=== PATIENT | female | born 1965 | race Caucasian/White ===

== ENCOUNTER 2017-11-02 20:25 | Emergency (ER) | payer OTHER, SELFPAY ==
[2017-11-02 20:26] VITALS: BP 148/93; PULSE 120; RESP 16; TEMP 36.7; O2SAT 97; BMI 50.3
[2017-11-02 20:33] VITALS: BP 145/87; PULSE 107; RESP 14; O2SAT 97
--- NOTE | 2017-11-02 21:31 | ED.DCSUM_ITS ---
- ER Visit Summary Date of Service: 11/02/17 Chief Complaint: Right knee pain secondary to twisting injury yesterday at work History of Present Illness: The patient is a 51 F presents with medial right knee pain after twisting mechanism injury. There is no direct trauma. She reports she has history of osteoarthritis and believe that is the problem. She reports pain with movement and weight. She denies being on any anticoagulant. She denies history of gout or pseudogout. 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 She has no other complaints please read written note. Physical Examination: Vital signs remarkable for blood pressure 145/87. Heart rate is 107. There may be slight swelling of the right knee compared to left. There is pain the patient over the medial collateral ligament. Is no pain the patient and lateral collateral ligament. There is no pain the patient of the patella and the patella is not ballotable. There is no palpable effusion. There is no joint line tenderness noted. Varus and valgus stress testing causes discomfort over the MCL. There is no laxity compared to the on injured knee. Amrita's test and modified Yonas's tests are negative. She is able to extend 180? and flex to 90?. There is fullness in the popliteal fossa suggestive of a Santamaria's cyst. There is no tenderness. There is no asymmetry, swelling, discoloration, leg vein distention, palpable cords or tenderness along the distribution of the deep venous system. Test Results: No tests were obtained, nor any indications there is no history of direct trauma and she has no joint line/tibial plateau tenderness. Emergency Department Course and Treatment: Patient had an appropriate exam and based on exam is my opinion the patient sprained her MCL ligament. Radiologic imaging is not indicated per the [place] knee rule. Treatment Plan: Outpatient follow-up with Dr. RACHEL Martinez who she was referred to since she does not have a local physician in the area. Disposition: Discharged home with appropriate home-going instructions Impression: First-degree MCL strain right knee initial encounter This note was generated with [employer] dictation software. It may contain incorrect words, spelling, and punctuation that were not noted in review of the chart prior to signing ED Disposition - Plan for ED Patient: Disposition: Home or Assisted Living Chief Complaint: Lower Extremity Injury Instructions: ED Sprain Knee Referrals: Care Physician,No Primary [Primary Care Provider] - Bart Martinez MD [STAFF PHYSICIAN] - 5-7 Days Additional Instructions: You may take either Tylenol every 6 hours or 3 ibuprofen tablets every 8 hours for pain.
== END 2017-11-02 22:16 | disposition home or self-care (01) ==
PROVIDERS: Emergency Provider Emergency Medicine
DX: S83.501A Sprain of unspecified cruciate ligament of right knee, initial encounter (principal); X50.1XXA Overexertion from prolonged static or awkward postures, initial encounter; Y93.9 Activity, unspecified; Y92.89 Other specified places as the place of occurrence of the external cause; Y99.0 Civilian activity done for income or pay; E11.9 Type 2 diabetes mellitus without complications; I10 Essential (primary) hypertension; E78.00 Pure hypercholesterolemia, unspecified; M19.90 Unspecified osteoarthritis, unspecified site
CPT/HCPCS: 99282

== ENCOUNTER → 2017-11-11 10:29 | Outpatient (CLI) | payer OTHER, SELFPAY ==
[2017-11-11 10:35] LABS: Mucous, Urine 0 SEEN /hpf (<or=2+)
--- NOTE | 2017-11-11 10:35 | RAD_ITS ---
STUDY: X-RAY - RIGHT KNEE REASON FOR EXAM: Female, 51 years old. Right knee pain. TECHNIQUE: 4 view(s) of the knee. COMPARISON: August 03, 2017 FINDINGS: There is a sclerotic area in the distal femur most likely representing an enchondroma, unchanged. Normal visualized proximal tibia and fibula. Normal proximal tibiofibular articulation. There is moderate arthrosis of the medial compartment, mild arthrosis of the lateral compartment and moderate arthrosis of the patellofemoral compartment, unchanged from the prior study. The soft tissue structures are unremarkable. RAD/Knee 4 or More Views IMPRESSION: Stable osteopenia and tricompartmental arthrosis. No new or acute pathology. Electronically Signed: Wenceslao James MD at 17:17 EST , Service support ,
[2017-11-11 11:51] LABS: Color, Urine Yellow (Yellow); Glucose, Dipstick Normal (Normal); Ketone-Dipstick Negative (Negative); Leukocyte Esterase-Dipstick 500 /ul (Negative); Nitrite-Dipstick Positive (Negative); Occult Blood-Urine 250 /ul (Negative); Protein-Dipstick 100 mg/dl (Negative); Specific Gravity, Urine 1.025 (1.002-1.030); Urine Clarity Turbid (Clear); Urine Urobilinogen Normal (Normal)
[2017-11-11 11:55] LABS: Urine Bilirubin Dipstick 1 mg/dL (Negative)
[2017-11-11 11:55] LABS: Absolute Neutrophil Count 4.4 X10^3/uL (2.0-7.7); Basophil# 0.04 X10^3/uL; Basophil% 0.6 % (0-1); Eosinophil# 0.14 X10^3/uL; Eosinophils% 2.1 % (0-5); Hematocrit 41.4 % (37-47); Hemoglobin 13.4 g/dl (12.0-15.0); Lymphocyte % 25.6 % (19-41); Mean Corp Hgb Conc 32.4 g/gl (32-36); Mean Corpuscular Hgb 28.4 pg (27.0-32.0); Mean Corpuscular Volume 87.7 fL (81-99); Mean Platelet Vol. 10.6 fl (6.2-12.0); Neutrophil # 4.35 X10^3/uL (2.7-7.7); Neutrophil % 65.5 % (47-70); Platelet Count 271 K/mm3 (150-450); RBC Distribution Width CV 13.2 % (11.6-14.6); RBC Distribution Width SD 42.2 fl (35.1-43.9); Red Blood Count 4.72 M/mm3 (4.2-5.4); White Blood Count 6.6 K/mm3 (4.4-11.0)
[2017-11-11 11:57] LABS: POSITIVE COUNT NO; POSITIVE DIFFERENTIAL NO; POSITIVE MORPHOLOGY NO
[2017-11-11 11:57] LABS: Bacteria 4+ /hpf (None Seen); Red Blood Cells-Urine 0-5 SEEN /hpf (0-5); White Blood Cells 25-50 SEEN /hpf (0-5); Yeast-Urine RARE /hpf (None Seen)
[2017-11-11 11:58] LABS: Squamous Epithelial Cells - UA 0-5 SEEN /hpf (5-10)
[2017-11-11 12:10] LABS: Hemoglobin A1c 7.1 % (4.2-6.3)
[2017-11-11 12:29] LABS: ALB/GLOB Ratio 0.8 RATIO (0.9-2.4); AST(SGOT) 18 U/L (15-37); Alanine Aminotransfer ALT/SGPT 43 U/L (13-56); Albumin, Serum 3.7 g/dL (3.2-5.0); Alkaline Phosphatase 95 U/L (45-117); Anion Gap 9 (5-15); BUN 13 mg/dL (7-18); Calcium,Total 8.9 mg/dL (8.5-10.1); Chloride 106 mmol/L (98-107); Cholesterol 202 mg/dL (200); Creatinine, Serum 0.86 mg/dL (0.55-1.02); EST Glomerular Filtration Rate 74 mL/min (>60); Est Glom Filt Rate - Afr Amer 89 mL/min (>60); Globulin 4.5 g/dL (2.2-4.2); Glucose 155 mg/dL (74-106); High Density Lipoprotein 38 mg/dL; Potassium 3.7 mmol/L (3.5-5.1); Protein, Total 8.2 g/dL (6.4-8.2); Sodium Level 140 mmol/L (136-145); Thyroid Stim Hormone (TSH) 1.06 uIU/mL (0.358-3.74); Triglycerides 239 mg/dL; Very Low Density Lipoprotein 48 mg/dL (5-40)
[2017-11-11 12:47] LABS: Microalbumin:Creatinine Ratio 218.9 mg/g CRE (<30 mg/g CRE)
== END ==
PROVIDERS: Family Provider Family Medicine; PCP Family Medicine; Visit Provider Family Medicine
DX: M17.10 Unilateral primary osteoarthritis, unspecified knee (principal); E11.9 Type 2 diabetes mellitus without complications; I10 Essential (primary) hypertension; E66.01 Morbid (severe) obesity due to excess calories
CPT/HCPCS: 73564; 80053; 80061; 81001; 82043; 82570; 83036; 84443; 85025; 87086; 87088; 87186

== ENCOUNTER 2017-12-09 09:00 | Outpatient (RCR) | payer OTHER, SELFPAY ==
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
--- NOTE | 2018-02-08 18:33 | HP.PTDCNRP_ITS ---
HP - Discharge Summary (1) - Patient Information CHALO PARHAM was seen in my office for initial evaluation on 11/18/17. The following Plan of Care was established for this patient: Initial Frequency: 2x /Week Initial Duration: 4-6 Weeks - Anticipated Interventions Patient/Client Instruction: Educate patient on: Condition, Plan of Care, Risk Factors, Benefits of Fitness Program For the Purpose of:: To improve decision making, To facilitate caregiver knowledge, To improve self management, To prevent re-injury, To improve ability to perform tasks related to life management, To improve tolerance to ADL's Therapeutic Exercise to Include: Strength training, Power training, Endurance training, Balance training, Body mechanics, Postural training, Flexibilty training, Gait and locomotor training, In an aquatic setting, Passive ROM, Active ROM For the Purpose of:: To decrease pain, To increase ROM, To improve nutrient delivery to tissue, To increase oxygenation perfusion, To improve muscle performance and motor function, To increase tolerance to activity/condition/ position, To improve performance and independence with ADL's, To improve ability of physical actions for home/community/work/leisure, To improve gait and locomotor functions, To improve health of tissue, To decrease soft tissue restriction, To increase flexibility/ROM, To improve balance IF ES: Yes Cryotherapy (ice pack, ice massage): Yes Thermo therapy (hot pack): Yes Ultrasound (thermal/non thermal): Yes For the Purpose of:: To decrease pain, To decrease swelling/inflammation, To increase ROM This patient was last seen in our office 12/09/17. Pertinent comments regarding their Physical therapy will appear below: Pt. was seen for 4 visits for her MCL sprain. Pt. was seen ni aquatic setting for 4 visits total, but did not return to any other visits. She was to attempt trialing to land PT at that point in time. She will be DC from PT at this point in time. At this point I will be discontinuing this patient from physical therapy. I would be happy to see this patient again in the future if found appropriate by the physician. Thank you! Gera Tai
== END 2017-12-09 19:00 | disposition home or self-care (01) ==
LOC: PT 09:00
PROVIDERS: Family Provider Family Medicine; PCP Family Medicine; Visit Provider Family Medicine
DX: S83.411D Sprain of medial collateral ligament of right knee, subsequent encounter (principal)
CPT/HCPCS: 97110; 97113; 97162

== ENCOUNTER 2017-12-25 09:43 | Outpatient (RCR) | payer OTHER, SELFPAY | END 2017-12-25 23:55 | LOC: DC 09:43 | PROVIDERS: Family Provider Family Medicine; PCP Family Medicine; Visit Provider Family Medicine | DX: E66.01 Morbid (severe) obesity due to excess calories (principal); Z71.3 Dietary counseling and surveillance | CPT/HCPCS: G0108 ==

== ENCOUNTER 2018-03-02 14:12 | Emergency (ER) | payer OTHER, SELFPAY ==
[2018-03-02 14:13] VITALS: BP 148/95; PULSE 119; RESP 18; TEMP 37.2; O2SAT 97; BMI 49.6
--- NOTE | 2018-03-02 14:57 | RAD_ITS ---
STUDY: X-RAY CHEST REASON FOR EXAM: Female, 52 years old. 3 day history of cough. TECHNIQUE: Single AP portable view of the chest. COMPARISON: Comparison is made with prior study dated September 11, 2017. FINDINGS: The lungs are clear and expanded. There is no demonstrated pleural abnormality. Normal size heart. Normal mediastinum and edwar. Normal visualized pulmonary arteries. Normal visualized aortic arch and descending thoracic aorta. Normal visualized thoracic spine. Normal visualized ribs, clavicles, and shoulders. There is no demonstrated abnormality of the visualized soft tissue structures of the upper abdomen. RAD/Chest 1 View (Portable) IMPRESSION: Normal x-ray examination of the chest. Electronically Signed: Lamine Black MD at 15:18 EDT Tel [phone], Service support ,
[2018-03-02 14:59] VITALS: PULSE 105; O2SAT 98
[2018-03-02] MEDS: Ondansetron 4 MG/2 ML Vial IV (15:04)
[2018-03-02] MEDS: 0.9% Normal Saline 1,000 ML 1000 ML IV (15:04)
[2018-03-02 15:13] LABS: Absolute Lymphocyte Count 1.39 X10^3/ul (0.83-4.51); Absolute Neutrophil Count 3.7 X10^3/uL (2.0-7.7); Basophil# 0.03 X10^3/uL; Basophil% 0.5 % (0-1); Eosinophil# 0.35 X10^3/uL; Eosinophils% 5.6 % (0-5); Hematocrit 37.7 % (37-47); Hemoglobin 12.5 g/dl (12.0-15.0); Lymphocyte # 1.39 X10^3/ul (4.0); Lymphocyte % 22.3 % (19-41); Mean Corp Hgb Conc 33.2 g/gl (32-36); Mean Corpuscular Hgb 29.2 pg (27.0-32.0); Mean Corpuscular Volume 88.1 fL (81-99); Mean Platelet Vol. 10.4 fl (6.2-12.0); Monocyte# 0.76 X10^3/uL; Monocyte% 12.2 % (0-10); Neutrophil % 59.2 % (47-70); Platelet Count 254 K/mm3 (150-450); RBC Distribution Width CV 13.1 % (11.6-14.6); RBC Distribution Width SD 41.6 fl (35.1-43.9); Red Blood Count 4.28 M/mm3 (4.2-5.4); White Blood Count 6.2 K/mm3 (4.4-11.0)
[2018-03-02 15:14] LABS: POSITIVE COUNT NO; POSITIVE DIFFERENTIAL NO; POSITIVE MORPHOLOGY NO
[2018-03-02] MEDS: Ipratropium/Albuterol Sulfate 3 ML AMPUL.NEB INHALATION (15:15)
[2018-03-02 15:16] VITALS: PULSE 107; RESP 18
--- NOTE | 2018-03-02 15:16 | ED.DCSUM_ITS ---
- ER Visit Summary Date of Service: 03/02/18 Chief Complaint: Nausea, vomiting, cough, and fever History of Present Illness: The patient is a 52 F with multiple symptoms. She started to have a cough 2 days ago. It is productive of sputum. No blood. She had some nausea and vomiting with this. The nausea has continued, but the vomiting resolved yesterday. Last night she had a fever of 101. She tried some Robitussin, but nothing seems to help. Patient has a history of diabetes, hypertension, high cholesterol, and obstructive sleep apnea. She is a former smoker. No history of heart disease or DVT/PE. Physical Examination: Tachycardic at 119. Afebrile. Vital signs unremarkable otherwise. Patient appears uncomfortable but not toxic or in distress. HEENT exam unremarkable. Heart regular. Lungs are diminished throughout. Patient has trace peripheral edema. Calves are nontender. Skin appears normal in color. Test Results: X-ray and labs pending. Emergency Department Course and Treatment: Patient was tachycardic. She was treated with IV fluids. She also received Zofran and a DuoNeb. Will check labs and a chest x-ray. Will reassess. Labs and x-ray unremarkable. Patient slightly improved. This is likely a viral syndrome. Will treat with albuterol, Tessalon, and Zofran. Stay hydrated and rested. Follow-up with primary care. Return for any new or worsening issues. Treatment Plan: As above Disposition: Discharged Impression: Acute bronchitis This note was generated with [employer] dictation software. It may contain incorrect words, spelling, and punctuation that were not noted in review of the chart prior to signing ED Disposition - Plan for ED Patient: Chief Complaint: General Illness Referrals: Bart Muniz MD [Primary Care Provider] -
[2018-03-02 15:32] LABS: Anion Gap 6 (5-15); BUN 14 mg/dL (7-18); BUN/Creat Ratio 14.1 RATIO (10-20); Chloride 105 mmol/L (98-107); EST Glomerular Filtration Rate 62 mL/min (>60); Est Glom Filt Rate - Afr Amer 76 mL/min (>60); Estimated Creatinine Clearance 52.64 ml/min; Glucose 177 mg/dL (74-106); Potassium 3.7 mmol/L (3.5-5.1); Sodium Level 139 mmol/L (136-145)
--- NOTE | 2018-03-02 16:02 | ED.DEP ---
ED Disposition - Plan for ED Patient: Chief Complaint: General Illness Instructions: Acute Bronchitis Prescriptions: Albuterol Inhaler [Ventolin Hfa] 1 - 2 puff INHALATION Q4H PRN PRN #1 inhaler PRN Reason: Wheezing Ondansetron [Zofran Odt] 4 mg PO Q8H PRN PRN #10 tab PRN Reason: Nausea Benzonatate [Tessalon Perle] 100 mg PO TID PRN PRN #20 cap PRN Reason: Cough Referrals: Bart Muniz MD [Primary Care Provider] -
[2018-03-02 16:27] VITALS: BP 132/92; PULSE 106; RESP 15; O2SAT 98
== END 2018-03-02 16:27 | disposition home or self-care (01) ==
PROVIDERS: Emergency Provider Emergency Medicine; Family Provider Family Medicine; PCP Family Medicine
DX: J20.9 Acute bronchitis, unspecified (principal); E11.9 Type 2 diabetes mellitus without complications; I10 Essential (primary) hypertension; E78.00 Pure hypercholesterolemia, unspecified; G47.33 Obstructive sleep apnea (adult) (pediatric); Z87.891 Personal history of nicotine dependence
CPT/HCPCS: 71045; 80048; 85025; 94640; 99283; J7030; J2405

== ENCOUNTER 2018-03-23 11:53 | Emergency (ER) | payer OTHER, SELFPAY ==
[2018-03-23 11:53] VITALS: BP 163/84; PULSE 85; RESP 16; TEMP 36.6; O2SAT 97; BMI 50.3
--- NOTE | 2018-03-23 13:55 | CT_ITS ---
STUDY: CT BRAIN WITHOUT CONTRAST REASON FOR EXAM: Female, 52 years old. 5 day history of headaches. RADIATION DOSAGE (If Supplied By Facility): CTDIvol = ( 60.81 ) mGy, DLP = ( 998.67 ) mGycm TECHNIQUE: Transaxial CT imaging of the brain was performed without administration of intravenous contrast material. Individualized dose optimization techniques were used for this CT. COMPARISON: None. FINDINGS: Normal soft tissue structures. Normal calvarium. Normal size ventricles and extra-axial spaces for the patient's age. Normal white matter tracts of the cerebral hemispheres. Normal basal ganglia and thalami. Normal brainstem. Normal cerebellum. Old lacunar infarct in the insular cortex of the left temporal lobe. There is no intracranial hemorrhage. There are no findings of an acute ischemic infarction. Normal visualized paranasal sinuses. CT/Brain/Head without Contrast IMPRESSION: Old lacunar infarct in the insular cortex of the left temporal lobe. Electronically Signed: Lamine Black MD at 14:46 EDT Tel [phone], Service support ,
[2018-03-23] MEDS: 0.9% Normal Saline 1,000 ML 1000 ML IV (14:15)
[2018-03-23] MEDS: Metoclopramide 10 MG/2 ML Vial IV (14:15)
[2018-03-23] MEDS: DiphenhydrAMINE 50 MG/ML Syringe 25 MG IV (14:15)
[2018-03-23] MEDS: Ketorolac 30 MG/ML Syringe IV (14:15)
[2018-03-23 14:28] LABS: Absolute Lymphocyte Count 2.14 X10^3/ul (0.83-4.51); Absolute Neutrophil Count 4.1 X10^3/uL (2.0-7.7); Basophil# 0.05 X10^3/uL; Basophil% 0.7 % (0-1); Eosinophil# 0.15 X10^3/uL; Eosinophils% 2.1 % (0-5); Hematocrit 37.3 % (37-47); Hemoglobin 11.9 g/dl (12.0-15.0); Lymphocyte # 2.14 X10^3/ul (4.0); Lymphocyte % 30.4 % (19-41); Mean Corp Hgb Conc 31.9 g/gl (32-36); Mean Corpuscular Hgb 28.1 pg (27.0-32.0); Mean Platelet Vol. 10.2 fl (6.2-12.0); Monocyte# 0.59 X10^3/uL; Monocyte% 8.4 % (0-10); Neutrophil # 4.11 X10^3/uL (2.7-7.7); Neutrophil % 58.3 % (47-70); POSITIVE COUNT NO; POSITIVE DIFFERENTIAL NO; POSITIVE MORPHOLOGY NO; Platelet Count 262 K/mm3 (150-450); RBC Distribution Width CV 13.3 % (11.6-14.6); RBC Distribution Width SD 42.7 fl (35.1-43.9); Red Blood Count 4.24 M/mm3 (4.2-5.4); White Blood Count 7.1 K/mm3 (4.4-11.0)
[2018-03-23 14:35] LABS: Carboxyhemoglobin Frac (CO) 1.5 % (0.0-1.5)
[2018-03-23 14:41] LABS: Anion Gap 7 (5-15); BUN 11 mg/dL (7-18); BUN/Creat Ratio 12.9 RATIO (10-20); Calcium,Total 8.8 mg/dL (8.5-10.1); Chloride 107 mmol/L (98-107); Creatinine, Serum 0.85 mg/dL (0.55-1.02); EST Glomerular Filtration Rate 75 mL/min (>60); Est Glom Filt Rate - Afr Amer 91 mL/min (>60); Estimated Creatinine Clearance 61.93 ml/min; Glucose 105 mg/dL (74-106); Potassium 4.1 mmol/L (3.5-5.1); Sodium Level 141 mmol/L (136-145)
--- NOTE | 2018-03-23 16:21 | ED.DCSUM_ITS ---
- ER Visit Summary Date of Service: 03/23/18 Chief Complaint: Headache History of Present Illness: The patient is a 52 F with generalized headache for the past 5 days. She states she does have light sensitivity and has had trouble staying awake. She denies head injury. She is currently staying at the [facility]. She states she is initially taking Excedrin but ran out of that medicine. She has been taking ibuprofen, last dose 6 hours prior to my initial evaluation. Physical Examination: Vital signs are significant for blood pressure 163/84, otherwise unremarkable. Patient sitting upright in bed no acute distress. She is alert and talkative. Head neck examination is unremarkable. Heart is regular rate and rhythm. Lung sounds are clear. Abdomen is soft and nontender. Neuro exam reveals good strength and sensation throughout. She is chronic changes to her left ankle from prior surgery. Test Results: CBC is significant only for hemoglobin 11.9. Chemistry studies normal. Carboxyhemoglobin level is normal at 1.5. CT head shows old lacunar infarct in the insular cortex of the left temporal lobe. Emergency Department Course and Treatment: Patient was given Toradol, Reglan, Benadryl, and IV fluids. On repeat evaluation she is resting comfortably and states her pain is resolved. Test results were discussed with her. She is encouraged to follow with her primary care physician in the next 1 week. Treatment Plan: [] Disposition: Discharge Impression: Cephalgia, improved This note was generated with [employer] dictation software. It may contain incorrect words, spelling, and punctuation that were not noted in review of the chart prior to signing ED Disposition - Plan for ED Patient: Disposition: Home or Assisted Living Chief Complaint: Headache Instructions: ED Cephalgia Unspecified Referrals: Bart Muniz MD [Primary Care Provider] - 1 Week if not improving
--- NOTE | 2018-03-23 16:38 | ED.RN ---
REVIEWED D/C INSTRUCTIONS, FOLLOW UP CARE, AND S/S THAT WOULD WARRANT A RETURN TO THE ED WITH PT. PT VERBALIZED AN UNDERSTANDING AND DENIES FURTHER QUESTIONS FOR THIS RN. PT SKIN P/W/D, RESP EVEN AND UNLABORED, PT A&O X 3, NO DISTRESS NOTED.
[2018-03-23 16:39] VITALS: BP 147/84; PULSE 78; RESP 16; O2SAT 100
== END 2018-03-23 16:43 | disposition home or self-care (01) ==
PROVIDERS: Emergency Provider Emergency Medicine; Family Provider Family Medicine; PCP Family Medicine
DX: R51 Headache (principal); E11.9 Type 2 diabetes mellitus without complications; I10 Essential (primary) hypertension; E78.00 Pure hypercholesterolemia, unspecified; G47.33 Obstructive sleep apnea (adult) (pediatric)
CPT/HCPCS: 70450; 80048; 82375; 85025; 99283; J7030; A4216

== ENCOUNTER 2018-06-27 23:51 | Observation (INO) | payer OTHER, SELFPAY ==
[2018-06-27 23:52] VITALS: BP 167/88; PULSE 96; RESP 15; TEMP 36.9; O2SAT 96; BMI 52.0
[2018-06-28] VITALS (16 sets, daily range): BP systolic 136–172; BP diastolic 67–93; PULSE 77–122; RESP 16–20; TEMP 36.6–37; O2SAT 94–98; BMI 49.4
--- NOTE | 2018-06-28 00:20 | EKG12_ITS ---
Test Reason : CHEST PAIN Blood Pressure : / mmHG Vent. Rate : 095 BPM Atrial Rate : 095 BPM P-R Int : 136 ms QRS Dur : 070 ms QT Int : 340 ms P-R-T Axes : 039 008 040 degrees QTc Int : 427 ms Normal sinus rhythm Minimal voltage criteria for LVH, may be normal variant Borderline ECG Confirmed by EVELIA HARO, LIDYA ([id number]), marketing editor XOCHITL MAYS ([id number]) on 06/30/2018 11:20:36 AM Referred By: MARTINEZ Confirmed By:LIDYA ALTAMIRANO MD
--- NOTE | 2018-06-28 00:25 | RAD_ITS ---
STUDY: X-RAY CHEST REASON FOR EXAM: Female, 52 years old. Chest pain. TECHNIQUE: Single AP portable view of the chest. # of Images: 1 COMPARISON: 03/02/2018. FINDINGS: The lungs are clear and mildly under expanded. There is no demonstrated pleural abnormality. Normal size heart. Normal mediastinum and edwar. Normal visualized pulmonary arteries. Normal visualized aortic arch and descending thoracic aorta. Normal visualized thoracic spine. Normal visualized ribs, clavicles, and shoulders. There is no demonstrated abnormality of the visualized soft tissue structures of the upper abdomen. RAD/Chest 1 View (Portable) IMPRESSION: No evidence for acute cardiopulmonary pathology. Electronically Signed: Kishan Bryant MD at 0:51 EDT , Service support ,
[2018-06-28 00:33] LABS: Absolute Lymphocyte Count 2.28 X10^3/ul (0.83-4.51); Absolute Neutrophil Count 5.2 X10^3/uL (2.0-7.7); Basophil# 0.04 X10^3/uL; Basophil% 0.5 % (0-1); Eosinophil# 0.15 X10^3/uL; Eosinophils% 1.8 % (0-5); Hematocrit 39.9 % (37-47); Hemoglobin 12.8 g/dl (12.0-15.0); Lymphocyte # 2.28 X10^3/ul (4.0); Lymphocyte % 27.5 % (19-41); Mean Corp Hgb Conc 32.1 g/gl (32-36); Mean Corpuscular Hgb 27.6 pg (27.0-32.0); Mean Platelet Vol. 10.4 fl (6.2-12.0); Monocyte# 0.64 X10^3/uL; Monocyte% 7.7 % (0-10); Neutrophil # 5.17 X10^3/uL (2.7-7.7); Neutrophil % 62.4 % (47-70); POSITIVE COUNT NO; POSITIVE DIFFERENTIAL NO; POSITIVE MORPHOLOGY NO; Platelet Count 295 K/mm3 (150-450); RBC Distribution Width CV 13.3 % (11.6-14.6); RBC Distribution Width SD 41.6 fl (35.1-43.9); Red Blood Count 4.64 M/mm3 (4.2-5.4); White Blood Count 8.3 K/mm3 (4.4-11.0)
[2018-06-28 00:54] LABS: Anion Gap 7 (5-15); BUN 14 mg/dL (7-18); BUN/Creat Ratio 13.9 RATIO (10-20); Chloride 105 mmol/L (98-107); Creatinine, Serum 1.01 mg/dL (0.55-1.02); EST Glomerular Filtration Rate 61 mL/min (>60); Est Glom Filt Rate - Afr Amer 74 mL/min (>60); Estimated Creatinine Clearance 52.12 ml/min; Glucose 175 mg/dL (74-106); Potassium 3.7 mmol/L (3.5-5.1); Sodium Level 139 mmol/L (136-145)
--- NOTE | 2018-06-28 00:54 | ED.DCSUM_ITS ---
History of Present Illness Chief Complaint: Chest Pain Informant: Patient Narrative: Patient presents with chest discomfort that started about an hour prior to arrival. It is all the way across her chest, nonpleuritic, heaviness, making her arms feel heavy and she is nauseated. She states her arms have felt heavy for maybe 3 days, worse tonight. Earlier today, she was having nonpleuritic back discomfort that was worse with exertion, upper back and nonlateralizing, and a little better when she rested but it did not resolve. She was nauseated today, vomited several times, all after the back pain started. Tonight she was resting and watching television while sitting up, when the chest discomfort started. She called 911 and was given 4 baby aspirin and a sublingual nitroglycerin, her chest discomfort is much improved now, down to 3/10. She has chronic swelling in her left lower extremity that is no worse, no history of venous thromboembolism. No history of coronary disease that she knows of, she had a stress test a year or 2 ago for chest pain that was okay, but states that it was different than this discomfort is. Her father at age 67 from cardiac complications. - Past Medical History (1) Hyperlipidemia Status: Chronic (2) Hypertension Status: Chronic (3) Diabetes mellitus Status: Chronic Past Medical History - Allergies and Home Meds Allergies/Adverse Reactions: Allergies carvedilol Allergy (Verified 03/23/18 11:55) Other Primary Care Physician: Bart Muniz MD [Primary Care Provider] - Surgical History: cholecystectomy, - - Repair of fracture of the left ankle with plate insertion, tubal ligation Smoking Status: Former smoker - Family History Maternal Family History: Reports: Diabetes, Hypertension Paternal Family History: Reports: Diabetes, Heart Disease, Hypertension Review of Systems General: Reports: Malaise. Denies: Chills, Fever, Sweats Eyes: Denies: Visual changes - bilaterally, Diplopia ENT: Denies: Bilateral ear pain, Sore throat Cardiovascular: Reports: Chest pain. Denies: Palpitations, Heart racing Respiratory: Denies: Dyspnea, Cough, Dyspnea on exertion Gastrointestinal: Reports: Nausea, Vomiting. Denies: Abdominal pain, Diarrhea, Melena, Hematochezia Genitourinary: Denies: Dysuria, Hematuria, Frequency Musculoskeletal: Reports: Back pain, Swelling - LLE chronic, unchanged. Denies: Extremity Pain - just heavy BUE Skin: Denies: Rash, Wounds Neurological: Denies: Headache, Weakness, Numbness Endocrine: Denies: Polyuria, Polydipsia Hematologic: Denies: Easy bruising, Easy bleeding Allergy: Denies: Swelling of the mouth, Swelling of the tongue Physical Exam Vital Signs/Narrative: Vital Signs Temp Pulse Resp BP Pulse Ox 06/27/18 23:52 98.5 F 96 15 167/88 H 96 Inital Vital Signs reviewed: Yes General: Well nourished, Well developed, Obese, - - nad Head: Normocephalic, Atraumatic Eyes: Perrl, EOMI ENT: Moist mucous membranes, No rhinorrhea. Negative for: Sinus tenderness Neck: Supple, Nontender, No lymphadenopathy, No JVD Cardiovascular: Regular rate, Regular rhythm, No murmurs Respiratory: No distress, CTA bilaterally, Chest nontender Abdomen: Soft, Nontender, Nondistended, Normal bowel sounds Back: Nontender, Normal Inspection. Negative for: CVA tenderness Extremities: Nontender, Edema - LLE 1-2+ Skin: Normal color, No rash Neurological: Alert, Oriented x3, Cranial nerves II-XII grossly intact, Normal Strength, Normal Sensation Psychological: Normal affect Diagnostic/Tx/Re-eval Impressions Chest X-Ray 06/28/18 00:25 IMPRESSION: No evidence for acute cardiopulmonary pathology. Electronically Signed: Kishan Bryant MD at 0:51 EDT , Service support , 06/28/18 00:25 Chest 1 View (Portable) [RAD] Stat Laboratory Results 06/28/18 06/28/18 00:10 00:10 WBC 8.3 RBC 4.64 Hgb 12.8 Hct 39.9 MCV 86.0 MCH 27.6 MCHC 32.1 RDW 13.3 RDW Differential 41.6 Plt Count 295 MPV 10.4 Immature Gran % (Auto) 0.100 Neut % (Auto) 62.4 Lymph % (Auto) 27.5 [place] % (Auto) 7.7 Eos % (Auto) 1.8 Baso % (Auto) 0.5 Absolute Neuts (auto) 5.2 Absolute Lymphs (auto) 2.28 Total Counted Not Reportable Sodium 139 Potassium 3.7 Chloride 105 Carbon Dioxide 27.0 Anion Gap 7 BUN 14 Creatinine 1.01 Estim Creat Clear Calc 52.12 Est GFR (MDRD) Af Amer 74 Est GFR (MDRD) Non-Af 61 BUN/Creatinine Ratio 13.9 Glucose 175 H Calcium 9.0 Troponin I < 0.015 - Rhythm Strip Rhythm Strip: Sinus Rhythm Rate: 90 Ectopy: None - EKG Initial EKG Interpretation: Sinus Rhythm, No Acute Injury Pattern, Non-Specific ST Changes - aVL, V6. no CLARIBEL/STD - Medical Decision Making Labs and chest x-ray are unremarkable. EKG is unremarkable, there are a couple of lateral leads with nonspecific T wave changes but no inversions or ST segment deviations, no signs of an acute injury. 4 baby aspirin were given prior to arrival along with nitroglycerin, we gave her more along with Tylenol for a headache that started afterwards. Chest discomfort further improved, but still present, 1-10/18. We will give morphine. TIFFANIE risk score is 2 (risk factors and severe angina), and HEART score is 6 (2,1,1,2,0). Plan is for admission to inpatient observation. ED Disposition - Plan for ED Patient: Disposition: Acute Care Hospital [facility] Chief Complaint: Chest Pain Diagnosis: Chest pain Referrals: Bart Muniz MD [Primary Care Provider] -
[2018-06-28] MEDS: 0.9% Normal Saline 1,000 ML 150 ML IV (01:00)
[2018-06-28] MEDS: Ondansetron 4 MG/2 ML Vial IV (01:03)
[2018-06-28] MEDS: Acetaminophen 500 MG Tablet 1000 MG PO (01:04)
[2018-06-28] MEDS: Morphine 4 MG/ML Syringe IV (02:23)
--- NOTE | 2018-06-28 03:27 | PCM.HP.STD ---
Problem List (1) Chest pain Status: Acute Qualifiers: Chest pain type: precordial chest pain History of Present Illness Date of Admission: 06/28/18 Chief Complaint: chest pain The patient is a 52 year old F with a significant history of anxiety, hypertension, diabetes and hyperlipidemia who presents with constant excruciating chest pain that started few hours before her admission. Her pain started at about 11:30 PM the night before her admission. Her pain started when she was at home watching TV. The pain is located at her entire chest. Her pain worsens with moving in the bed. Reportedly nitroglycerin gave her some improvements. She had nausea, vomiting and back pain earlier in the day will be for her chest pain started. She denies any diaphoresis. When her chest pain actually started it did not radiate to any parts of her body. She described her chest pain as somebody sitting on her entire chest. Importantly patient has had 2 stress test for chest pain. Her last stress test was about a year and a half ago; and another 2-1/2 years ago. Previous stress test was with chemical stress test. She reports that she is unable to run on a treadmill because of screws in her left leg. At the emergency department EKG was unremarkable except T wave flattening in aVL. Past Medical History Past Medical History (Chronic Problems): Chronic Problems Hyperlipidemia (Chronic) Diabetes mellitus (Chronic) Hypertension (Chronic) Allergies carvedilol Allergy (Verified 03/23/18 11:55) Other Home Medications: Ambulatory Orders Medication Instructions Recorded Aspirin [Aspirin, Baby] 81 mg PO DAILY@0800 08/03/16 Lisinopril [Zestril] 40 mg PO TID 08/03/16 Metformin HCl [Glucophage] 1,000 mg PO BIDCM 08/03/16 Albuterol Inhaler [Ventolin Hfa] 1 - 2 puff INHALATION Q4H PRN PRN 03/02/18 #1 inhaler Atorvastatin Calcium [Lipitor] 20 mg PO QHS 03/02/18 Famotidine 20 mg PO DAILY 06/28/18 Turmeric/Turmeric Root Extract 1 each PO BID 06/28/18 [Turmeric 500 mg Capsule] Surgical History: cholecystectomy, - - Repair of fracture of the left ankle with plate insertion, tubal ligation Lives: - - She lives with a friend and her friend's boyfriend. Smoking Status: Former smoker Alcohol: None - *Family History Maternal History Items: Diabetes, Hypertension Paternal History Items: Diabetes, Heart Disease, Hypertension Review of Systems Constitutional: Denies: Chills, Fever, Weight Change HEENT: Denies: Head Aches, Sinus Congestion, Sinus Drainage Cardiovascular: Reports: Chest Pain. Denies: Palpitations Respiratory: Denies: Cough, Shortness of breath at rest, Sputum production Gastrointestinal: Reports: Nausea, Vomiting. Denies: Abdominal Pain Genitourinary: Denies: Dysuria Musculoskeletal: Reports: Back Pain. Denies: Joint Tenderness Skin: Denies: Rash, Wounds Neurological: Denies: Numbness, Tingling, Focal weakness Psychiatric: Denies: Anxiety, Depression, Homicidal Ideations, Suicidal Ideations Hematologic/ Lymphatic: Denies: Easy Bruising, Easy Bleeding VTE Information - Inpt Only VTE Present on Admission: No VTE Mechan Device Prophylaxis: None VTE Pharm Prophylaxis ordered?: Yes Patient Problems: Active and Suspected Problems Chest pain (Acute) - Physical Exam General: Alert, Oriented x3, Cooperative HEENT: Atraumatic, PERRLA, EOMI, Normocephalic Neck: Supple, No JVD, Negative Carotid Bruits Lungs: Clear to auscultation, Normal air movement Cardiovascular: Regular rate, No murmurs Abdomen: Bowel Sounds Present, Soft, Non Tender Extremities: No edema, Capillary Refill Less than 3 Seconds Skin: No rashes, No breakdown Musculoskeletal: No Tenderness to Palpation of Joints or Extremities Neurological: Cranial nerves II-XII grossly intact Psych/Mental Status: Normal Affect, Appropriate Vital Signs Temp Pulse Resp BP Pulse Ox 98.5 F 89 19 H 172/93 H 97 06/27/18 23:52 06/28/18 02:17 06/28/18 02:17 06/28/18 02:17 06/28/18 02:17 Oxygen Delivery Method Room Air Weight: 128.9 kg Body Mass Index (BMI) 52.0 Laboratory Tests Past 24 Hrs 06/28/18 06/28/18 00:10 00:10 WBC 8.3 RBC 4.64 Hgb 12.8 Hct 39.9 MCV 86.0 MCH 27.6 MCHC 32.1 RDW 13.3 RDW Differential 41.6 Plt Count 295 MPV 10.4 Immature Gran % (Auto) 0.100 Neut % (Auto) 62.4 Lymph % (Auto) 27.5 [place] % (Auto) 7.7 Eos % (Auto) 1.8 Baso % (Auto) 0.5 Absolute Neuts (auto) 5.2 Absolute Lymphs (auto) 2.28 Total Counted Not Reportable Sodium 139 Potassium 3.7 Chloride 105 Carbon Dioxide 27.0 Anion Gap 7 BUN 14 Creatinine 1.01 Estim Creat Clear Calc 52.12 Est GFR (MDRD) Af Amer 74 Est GFR (MDRD) Non-Af 61 BUN/Creatinine Ratio 13.9 Glucose 175 H Calcium 9.0 Troponin I < 0.015 Assessment/Plan All Active Problems Chest pain (Acute) The patient is a 52 year old F with a significant history of hypertension diabetes and hyperlipidemia who presents with constant excruciating chest pain and with a risk factors of former smoker, hypertension, diabetes and hyperlipidemia. Chest pain Admit to a monitored bed on PCU CXR independently reviewed confirms no acute cardiopulmonary disease but with some cardiomegaly. EKG independently reviewed confirms initial T wave flattening in aVL; but later this normalized. Patient received aspirin 324 mg by the paramedics. She reported she takes aspirin at home but the last time she took it was about February 2018. ASA 81 mg p.o. daily SL NTG 0.4 mg prn as needed for chest pain High intensity statin ordered. Fasting lipids ordered. Morphine as needed for chest pain. Serial cardiac enzymes Stat EKG as needed for chest pain Chemical stress test with nuclear imaging in the AM if the cardiac enzymes are negative Importantly patient reported severe shortness of breath with a prior carvedilol use. Beta-blockers will not be ordered at this time. Lisinopril continued Hypertension Blood pressure was uncontrolled at the time of admission. Home lisinopril continue. Patient was tachycardia will stay away from hydralazine at this time. Because of previous use of carvedilol which gave her severe shortness of breath at the point that she felt she was going to labetalol was not ordered. Catapres as needed ordered. Diabetes mellitus Blood pressure within goal at the time of admission. Home metformin held since it is too early in her admission. Accu-Chek every 6 hours with correction scale insulin. DVT prophylaxis Subcutaneous Lovenox
--- NOTE | 2018-06-28 03:39 | EKG12_ITS ---
Test Reason : REPEAT CP Blood Pressure : / mmHG Vent. Rate : 084 BPM Atrial Rate : 084 BPM P-R Int : 138 ms QRS Dur : 074 ms QT Int : 362 ms P-R-T Axes : 042 014 041 degrees QTc Int : 427 ms Normal sinus rhythm Normal ECG Confirmed by EVELIA HARO, LIDYA ([id number]), make up editor JAKE STANTON ([id number]) on 07/01/2018 1:49:21 PM Referred By: LISA Confirmed By:LIDYA ALTAMIRANO MD
[2018-06-28] MEDS: Atorvastatin Calcium 80 MG Tablet PO (04:49)
[2018-06-28 07:00] LABS: Bedside Glucose 140 mg/dL (70-110)
[2018-06-28 07:39] LABS: Cholesterol 167 mg/dL (200); High Density Lipoprotein 35 mg/dL; Triglycerides 162 mg/dL; Very Low Density Lipoprotein 32 mg/dL (5-40)
[2018-06-28] MEDS: Lisinopril 40 MG Tablet PO (07:54)
[2018-06-28] MEDS: Enoxaparin 40 MG/0.4 ML Syringe SC (07:54)
[2018-06-28] MEDS: Aspirin E.C. 81 MG Tablet PO (07:54)
[2018-06-28] MEDS: Famotidine 20 MG Tablet PO (07:54)
[2018-06-28 11:16] LABS: Bedside Glucose 182 mg/dL (70-110)
--- NOTE | 2018-06-28 11:48 | PCM.PN.HOSP ---
Patient Problems: Active and Suspected Problems Chest pain (Acute) Vitals/I&O's: Vital Signs Temp Pulse Resp BP Pulse Ox 98.2 F 80 16 154/85 H 96 06/28/18 09:05 06/28/18 11:05 06/28/18 09:05 06/28/18 09:05 06/28/18 09:05 Oxygen Delivery Method Room Air Weight: 274 lb 4.081 oz Body Mass Index (BMI) 49.4 Intake and Output for Last 24 Hours 06/26/18 06/27/18 06/28/18 23:59 23:59 23:59 Intake Total 100 / 100 Balance 100 / 100 Laboratory Results 06/28/18 00:10: WBC 8.3, RBC 4.64, Hgb 12.8, Hct 39.9, MCV 86.0, MCH 27.6, MCHC 32.1, RDW 13.3, RDW Differential 41.6, Plt Count 295, MPV 10.4, Immature Gran % (Auto) 0.100, Neut % (Auto) 62.4, Lymph % (Auto) 27.5, [place] % (Auto) 7.7, Eos % (Auto) 1.8, Baso % (Auto) 0.5, Absolute Neuts (auto) 5.2, Absolute Lymphs (auto) 2.28, Total Counted Not Reportable 06/28/18 00:10: Sodium 139, Potassium 3.7, Chloride 105, Carbon Dioxide 27.0, Anion Gap 7, BUN 14, Creatinine 1.01, Estim Creat Clear Calc 52.12, Est GFR (MDRD) Af Amer 74, Est GFR (MDRD) Non-Af 61, BUN/Creatinine Ratio 13.9, Glucose 175 H, Calcium 9.0, Troponin I < 0.015 06/28/18 03:58: Troponin I < 0.015 06/28/18 06:46: POC Glucose 140 H 06/28/18 06:50: Troponin I < 0.015, Triglycerides 162, Cholesterol 167, LDL Cholesterol 100, VLDL Cholesterol 32, HDL Cholesterol 35 L 06/28/18 11:07: POC Glucose 182 H Current Medications Albuterol Sulfate (Ventolin Aerosols) 2.5 mg INHALATION Q4H PRN PRN PRN Reason: SOB/Wheezing Aspirin (Ecotrin) 81 mg PO DAILY@0800 [facility] Last Admin: 06/28/18 07:54 Dose: 81 mg Atorvastatin Calcium (Lipitor) 80 mg PO QHS [facility] Last Admin: 06/28/18 04:49 Dose: 80 mg Clonidine (Catapres) 0.1 mg PO Q6H PRN PRN PRN Reason: SBP>160 Dextrose (D50w Syringe) 0 gm IV X1 PRN; Protocol PRN Reason: Hypoglycemia Enoxaparin Sodium (Lovenox) 40 mg SC DAILY@1000 [facility] Last Admin: 06/28/18 07:54 Dose: 40 mg Famotidine (Pepcid) 20 mg PO DAILY [facility] Last Admin: 06/28/18 07:54 Dose: 20 mg Glucagon () 1 mg IM .X1 PRN PRN Reason: Hypoglycemia Sodium Chloride () 250 mls @ 15 mls/hr IV .[id number] PRN PRN Reason: SALINE FLUSH Insulin Human Lispro (Humalog Kwikpen (Bkc)) 0 unit SQ ACHS [facility]; Protocol Last Admin: 06/28/18 07:50 Dose: Not Given Lisinopril (Zestril) 40 mg PO DAILY [facility] Last Admin: 06/28/18 07:54 Dose: 40 mg Magnesium Hydroxide (Milk Of Magnesia) 30 ml PO DAILY PRN PRN Reason: Constipation Morphine Sulfate () 2 mg IV Q4H PRN PRN PRN Reason: PAIN Nitroglycerin (Nitrostat) 0.4 mg SUBLINGUAL Q5M PRN PRN Reason: CHEST PAIN Medical Necessity - Tobacco Use Smoking Status: Former smoker Assessment/Plan All Active Problems Chest pain (Acute)
--- NOTE | 2018-06-28 11:50 | PCM.HOSP.N ---
Hospitalist Note There is a 51-year-old female with history of anxiety, hypertension, diabetes and hyperlipidemia was admitted with chest pain, atypical on both sides right and left and anterior and posterior. She does not have associated symptoms of shortness of breath, palpitation. This started about 11:30 PM she was sitting with no exertion. No aggravating or relieving factor. The EKG showed T wave flattening in aVL and so unremarkable. She had a stress test in December 2016, pharmacological was negative On exam Morbid obesity, BMI 49.4. Chronic bilateral lower extremity edema, left more than right most probably secondary to obesity and lymphedema. She had left lower leg fracture near ankle and she has edema since then. Her serial troponin enzymes are negative fasting profile shows low HDL 35. Glucose is mildly elevated 140 and 182. Plan pharmacological nuclear stress test tomorrow morning. A1c tomorrow a.m.
[2018-06-28] MEDS: Insulin Lispro 100 UNIT/ML INSULN.PEN SQ ×2 (12:05→21:07)
[2018-06-28 16:51] LABS: Bedside Glucose 138 mg/dL (70-110)
[2018-06-29] VITALS (9 sets, daily range): BP systolic 127–150; BP diastolic 75–92; PULSE 77–112; RESP 13–18; TEMP 36.7–36.9; O2SAT 96–99
[2018-06-29 00:31] LABS: Bedside Glucose 162 mg/dL (70-110)
--- NOTE | 2018-06-29 05:55 | EKG12_ITS ---
Test Reason : AM EKG Blood Pressure : / mmHG Vent. Rate : 101 BPM Atrial Rate : 101 BPM P-R Int : 158 ms QRS Dur : 072 ms QT Int : 332 ms P-R-T Axes : 049 028 061 degrees QTc Int : 430 ms Sinus tachycardia Nonspecific T wave abnormality Abnormal ECG Confirmed by EVELIA HARO, LIDYA ([id number]), electronic news gathering editor JAKE STANTON ([id number]) on 07/01/2018 1:46:32 PM Referred By: SUDHIR Confirmed By:LIDYA ALTAMIRANO MD
[2018-06-29 06:15] LABS: Absolute Lymphocyte Count 2.12 X10^3/ul (0.83-4.51); Absolute Neutrophil Count 3.4 X10^3/uL (2.0-7.7); Basophil# 0.05 X10^3/uL; Basophil% 0.8 % (0-1); Eosinophil# 0.15 X10^3/uL; Eosinophils% 2.4 % (0-5); Hematocrit 38.8 % (37-47); Hemoglobin 12.5 g/dl (12.0-15.0); Lymphocyte # 2.12 X10^3/ul (4.0); Lymphocyte % 34.2 % (19-41); Mean Corp Hgb Conc 32.2 g/gl (32-36); Mean Corpuscular Hgb 28.3 pg (27.0-32.0); Mean Platelet Vol. 10.6 fl (6.2-12.0); Monocyte# 0.44 X10^3/uL; Monocyte% 7.1 % (0-10); Neutrophil # 3.42 X10^3/uL (2.7-7.7); Neutrophil % 55.3 % (47-70); Platelet Count 260 K/mm3 (150-450); RBC Distribution Width CV 13.3 % (11.6-14.6); RBC Distribution Width SD 41.8 fl (35.1-43.9); Red Blood Count 4.41 M/mm3 (4.2-5.4); White Blood Count 6.2 K/mm3 (4.4-11.0)
[2018-06-29 06:20] LABS: POSITIVE COUNT NO; POSITIVE DIFFERENTIAL NO; POSITIVE MORPHOLOGY NO
[2018-06-29 06:24] LABS: Anion Gap 6 (5-15); BUN 16 mg/dL (7-18); BUN/Creat Ratio 17.1 RATIO (10-20); Calcium,Total 8.6 mg/dL (8.5-10.1); Chloride 104 mmol/L (98-107); Creatinine, Serum 0.94 mg/dL (0.55-1.02); EST Glomerular Filtration Rate 67 mL/min (>60); Est Glom Filt Rate - Afr Amer 81 mL/min (>60); Glucose 134 mg/dL (74-106); Partial Thromboplast Time 32.1 Seconds (24.1-36.2); Potassium 4.1 mmol/L (3.5-5.1); Sodium Level 138 mmol/L (136-145)
[2018-06-29] MEDS: Lisinopril 40 MG Tablet PO (06:28)
[2018-06-29] MEDS: Aspirin E.C. 81 MG Tablet PO (06:28)
[2018-06-29 07:16] LABS: Bedside Glucose 142 mg/dL (70-110)
[2018-06-29 08:12] LABS: Hemoglobin A1c 6.6 % (4.2-6.3)
--- NOTE | 2018-06-29 10:01 | STRESSREP ---
Stress Test Report Date: 06/29/2018 Procedure: Pharmacologic stress nuclear imaging study Indications: Chest pain Consent: Per the patient Procedure: The patient underwent pharmacologic (Regadenoson) evaluation with a peak heart rate of 129 beats per minute (76 predicted maximal heart rate) and a peak blood pressure of 146/72 mmHg. The baseline ECG demonstrated normal sinus rhythm. The peak pharmacologic ECG demonstrated no obvious ECG changes. There were no cardiac dysrhythmias pretest, during pharmacologic infusion, or recovery. There was no complaint of chest discomfort during pharmacologic infusion or recovery. The examination was discontinued secondary to completion of protocol. Impression: 1. Pharmacologic (Regadenoson) evaluation 2. Peak pharmacologic ECG with no obvious ECG changes. 3. There were no cardiac dysrhythmias pretest, during pharmacologic infusion, or recovery. 4. Nuclear images pending Myocardial perfusion imaging study: Technique: The patient was injected with 14.8 millicuries of technetium 99m Cardiolite and subsequently rest SPECT Cardiolite nuclear imaging was obtained in the horizontal long, vertical long, and short axis views. The patient underwent pharmacologic (Regadenoson) evaluation with a peak heart rate of 129 beats per minute (76 % percent predicted maximal heart rate) and a peak blood pressure of 146/72 mmHg. The patient was injected with 44.9 millicuries of technetium 99m Cardiolite and subsequently stress SPECT Cardiolite nuclear imaging was obtained in the horizontal long, vertical long, and short axis views. A gated Cardiolite study at peak stress was obtained. Interpretation: Rest and stress SPECT Cardiolite nuclear imaging status post realignment, normalization, and attenuation correction demonstrate relative uniform tracer uptake and myocardial perfusion appearing within normal limits. There is end systolic thickening and brightening. The gated Cardiolite study demonstrates myocardial thickening and inward wall motion. The reported LVEF is 75 %. Impression: 1. Rest and stress SPECT Cardiolite nuclear imaging demonstrate relative uniform tracer uptake and myocardial perfusion appearing within normal limits. 2. The gated Cardiolite study reports an LVEF of 75 %. This note was generated with [employer] software. It may contain incorrect words, spelling, and punctuation that were not noted in checking the note before signing.
--- NOTE | 2018-06-29 10:19 | DCINST_ITS ---
- Discharge Diagnoses Current Active Problems: Current Active and Chronic Problems Chest pain (Acute) You will use the following diet at home:: Calorie/Carbohydrate Controlled (specify 1200, 1400, etc) - 1800 ADA diet Your food should be the consistency of: Regular Call your doctor if you observe: Fever of 101 or Higher, Inability to have a bowel movement, Fainting spells, Swelling in the ankles, Chest pain, Increased palpitations (irregular heartbeat) Allergies/Adverse Reactions: Allergies carvedilol Allergy (Verified 03/23/18 11:55) Other Medications to take at Discharge Aspirin [Aspirin, Baby] 81 mg PO DAILY@0800 08/03/16 Lisinopril [Zestril] 40 mg PO DAILY 08/03/16 Metformin HCl [Glucophage] 1,000 mg PO BIDCM 08/03/16 Albuterol Inhaler [Ventolin Hfa] 1 - 2 puff INHALATION Q4H PRN PRN #1 inhaler 03/02/18 Famotidine 20 mg PO DAILY 06/28/18 Turmeric/Turmeric Root Extract [Turmeric 500 mg Capsule] 1 each PO BID 06/28/18 Atorvastatin Calcium 40 mg PO QHS #30 tablet 06/29/18 The following prescriptions were given: Atorvastatin Calcium 40 mg PO QHS #30 tablet Primary Care Physician: Bart Muniz MD [Primary Care Provider] - Please follow up with your Primary Care Physician in: in 2 weeks Test Results: Test results from this visit will be discussed in further detail at your follow- up appointment, if applicable.
--- NOTE | 2018-06-29 10:20 | DS.PCM_ITS ---
Discharge Date and Diagnosis Date of Admission: 06/28/18 Date of Discharge: 06/29/18 - Primary Discharge Diagnosis Active and Suspected Problems Chest pain (Acute) Atypical chest pain most probably from musculoskeletal pain. Acute coronary syndrome ruled out - Secondary Discharge Diagnosis Chronic Problems Hyperlipidemia (Chronic) Diabetes mellitus (Chronic) Hypertension (Chronic) Hospital Course and Treatment Imaging Results: 06/29/18 05:55 Nuclear Stress Test - Chemical [NM] Routine Operations: None Summary of Care Provided: [] There is a 51-year-old female with history of anxiety, hypertension, diabetes and hyperlipidemia was admitted with chest pain, atypical on both sides right and left and anterior and posterior. She does not have associated symptoms of shortness of breath, palpitation. The EKG showed T wave flattening in aVL and so unremarkable. She had a stress test in December 2016, pharmacological was negative she was further admitted on PCU for further evaluation. Her serial troponin enzymes are negative. fasting profile shows low HDL 35. Glucose is mildly elevated 140 and 182. Patient had pharmacological nuclear stress test which reported as within normal limit. Gated Cardiolite EF 75%. - Physical Exam General: Alert, Oriented x3, Cooperative, - - Morbid obesity HEENT: Atraumatic, PERRLA, EOMI, Normocephalic Neck: Supple, No JVD, Negative Carotid Bruits Lungs: Normal air movement, No rhonchi, No wheeze, Diminished - Bilateral lung bases Cardiovascular: Regular rate, Normal S1, Normal S2, No murmurs Abdomen: Bowel Sounds Present, Soft, Non Tender, Non-Distended Extremities: Capillary Refill Less than 3 Seconds, Edema - Chronic bilateral lower extremity edema, left more than right most probably secondary to obesity and lymphedema. She had left lower leg fracture near ankle and she has edema since then. Skin: No rashes, No breakdown Musculoskeletal: No Tenderness to Palpation of Joints or Extremities, Muscle Wasting Neurological: Cranial nerves II-XII grossly intact Psych/Mental Status: Normal Affect, Appropriate Vital Signs Temp Pulse Resp BP Pulse Ox 98.3 F 112 H 18 150/82 H 97 06/29/18 08:40 06/29/18 08:44 06/29/18 08:40 06/29/18 08:40 06/29/18 08:40 Oxygen Delivery Method Room Air Weight: 274 lb 4.081 oz Body Mass Index (BMI) 49.4 Intake and Output for Last 24 Hours 06/27/18 06/28/18 06/29/18 23:59 23:59 23:59 Intake Total 1896 150 / 150 Balance 1896 150 / 150 Laboratory Tests Past 24 Hrs 06/29/18 06/29/18 06/29/18 05:40 05:40 05:40 WBC 6.2 RBC 4.41 Hgb 12.5 Hct 38.8 MCV 88.0 MCH 28.3 MCHC 32.2 RDW 13.3 RDW Differential 41.8 Plt Count 260 MPV 10.6 Immature Gran % (Auto) 0.200 Neut % (Auto) 55.3 Lymph % (Auto) 34.2 [place] % (Auto) 7.1 Eos % (Auto) 2.4 Baso % (Auto) 0.8 Absolute Neuts (auto) 3.4 Absolute Lymphs (auto) 2.12 Total Counted Not Reportable PT 13.0 INR 1.0 APTT 32.1 Sodium Potassium Chloride Carbon Dioxide Anion Gap BUN Creatinine Estim Creat Clear Calc Est GFR (MDRD) Af Amer Est GFR (MDRD) Non-Af BUN/Creatinine Ratio Glucose Hemoglobin A1c 6.6 H Calcium 06/29/18 05:40 WBC RBC Hgb Hct MCV MCH MCHC RDW RDW Differential Plt Count MPV Immature Gran % (Auto) Neut % (Auto) Lymph % (Auto) [place] % (Auto) Eos % (Auto) Baso % (Auto) Absolute Neuts (auto) Absolute Lymphs (auto) Total Counted PT INR APTT Sodium 138 Potassium 4.1 Chloride 104 Carbon Dioxide 28.0 Anion Gap 6 BUN 16 Creatinine 0.94 Estim Creat Clear Calc 56.00 Est GFR (MDRD) Af Amer 81 Est GFR (MDRD) Non-Af 67 BUN/Creatinine Ratio 17.1 Glucose 134 H Hemoglobin A1c Calcium 8.6 POC Glucose 06/29/18 06/28/18 06/28/18 06:30 21:06 16:16 POC Glucose 142 H 162 H 138 H 06/28/18 11:07 POC Glucose 182 H Call your doctor if you observe: Fever of 101 or Higher, Inability to have a bow el movement, Fainting spells, Swelling in the ankles, Chest pain, Increased palpitations (irregular heartbeat) Home Medications: Medications to take at Discharge Aspirin [Aspirin, Baby] 81 mg PO DAILY@0800 08/03/16 Lisinopril [Zestril] 40 mg PO DAILY 08/03/16 Metformin HCl [Glucophage] 1,000 mg PO BIDCM 08/03/16 Albuterol Inhaler [Ventolin Hfa] 1 - 2 puff INHALATION Q4H PRN PRN #1 inhaler 03/02/18 Famotidine 20 mg PO DAILY 06/28/18 Turmeric/Turmeric Root Extract [Turmeric 500 mg Capsule] 1 each PO BID 06/28/18 Atorvastatin Calcium 40 mg PO QHS #30 tablet 06/29/18 Following Prescrptions Were Given to Patient: Atorvastatin Calcium 40 mg PO QHS #30 tablet Primary Care Physician: Bart Muniz MD [Primary Care Provider] - Please follow up with your Primary Care Physician in: in 2 weeks Medical Necessity - Tobacco Use Smoking Status: Former smoker Meaningful Use Info Meaningful Use Diagnoses (Choose all that apply): None applicable Code Visit OBSV E&M: 43204 Observation care discharge
[2018-06-29] MEDS: Acetaminophen 325 MG Tablet 650 MG PO (10:43)
[2018-06-29] MEDS: Famotidine 20 MG Tablet PO (10:44)
[2018-06-29 11:05] LABS: Bedside Glucose 151 mg/dL (70-110)
== END 2018-06-29 10:19 | disposition home or self-care (01) ==
LOC: ED 06-28 01:56 → PCU 06-28 02:41
PROVIDERS: Admitting Provider Hospitalist; Emergency Provider Emergency Medicine; Family Provider Family Medicine; PCP Family Medicine; Visit Provider Internal Medicine
DX: R07.89 Other chest pain (principal); M79.89 Other specified soft tissue disorders; E78.5 Hyperlipidemia, unspecified; E11.9 Type 2 diabetes mellitus without complications; I10 Essential (primary) hypertension; R11.2 Nausea with vomiting, unspecified; Z87.891 Personal history of nicotine dependence; Z79.899 Other long term (current) drug therapy; Z79.84 Long term (current) use of oral hypoglycemic drugs; Z79.82 Long term (current) use of aspirin; E66.01 Morbid (severe) obesity due to excess calories; Z68.42 Body mass index [BMI] 45.0-49.9, adult; Z71.3 Dietary counseling and surveillance
CPT/HCPCS: 36415; 71045; 78452; 80048; 80061; 82962; 83036; 84484; 85025; 85610; 85730; 93005; 93017; 96361; 96372; 96374; 96375; 97802; 99218; 99285; A9500; J7030; A4216; G0378; J2405; J2785

== ENCOUNTER 2019-05-28 09:14 | Emergency (ER) | payer OTHER, SELFPAY ==
[2019-05-28 09:15] VITALS: BP 165/104; PULSE 128; RESP 16; TEMP 36.6; O2SAT 97; BMI 53.2
--- NOTE | 2019-05-28 09:36 | CT_ITS ---
STUDY: CT BRAIN WITHOUT CONTRAST REASON FOR EXAM: Female, 53 years old. FALL, NO LOC, LAC TO HEAD RADIATION DOSAGE (If Supplied By Facility): CTDIvol = ( 44.99 ) mGy, DLP = ( 745.49 ) mGycm TECHNIQUE: Transaxial CT imaging of the brain was performed without administration of intravenous contrast material. Individualized dose optimization techniques were used for this CT. COMPARISON: March 23, 2000 and FINDINGS: There is there is stable mild dilatation of the ventricles. There are areas of decreased attenuation within the white matter tracts of the supratentorial brain, consistent with microvascular disease changes. There is no intracranial hemorrhage. There are no findings of an acute ischemic infarction. Mild right supraorbital scalp swelling is noted. CT/Brain/Head without Contrast IMPRESSION: No intracranial hemorrhage. Electronically Signed: Darrell Patricio MD at 10:14 EDT Tel , Service support ,
--- NOTE | 2019-05-28 09:37 | ED.VIS.GEN ---
History of Present Illness Chief Complaint: Head Injury Informant: Patient Onset: Today Narrative: Patient states that prior to arrival she had mechanical fall. 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 She did hit her forehead on the pavement of the street. She denies LOC. She does report associated headache and right knee pain. She has not taken anything for analgesia. Her tetanus is up-to-date. Past Medical History - Allergies and Home Meds Allergies/Adverse Reactions: Allergies carvedilol Allergy (Verified 05/28/19 09:15) Other Primary Care Physician: Bart Muniz MD [STAFF PHYSICIAN] - Surgical History: cholecystectomy, - - Repair of fracture of the left ankle with plate insertion, tubal ligation Smoking Status: Never smoker - Family History Maternal Family History: Reports: Diabetes, Hypertension Paternal Family History: Reports: Diabetes, Heart Disease, Hypertension Review of Systems General: Denies: Chills, Fever, Sweats Eyes: Denies: Visual changes - bilaterally, Diplopia ENT: Denies: Rhinorrhea, Sore throat Cardiovascular: Denies: Chest pain, Palpitations Respiratory: Denies: Dyspnea, Cough, Dyspnea on exertion Gastrointestinal: Denies: Abdominal pain, Nausea, Vomiting, Diarrhea, Melena, Hematochezia Genitourinary: Denies: Dysuria, Hematuria, Frequency Musculoskeletal: Reports: - - Right knee pain. Denies: Neck pain, Back pain, Extremity Pain Skin: Reports: Wounds - Right forehead abrasion. Denies: Rash Neurological: Reports: Headache. Denies: Weakness, Numbness Physical Exam Vital Signs/Narrative: Vital Signs Temp Pulse Resp BP Pulse Ox 05/28/19 09:15 97.8 F 128 H 16 165/104 H 97 General: Well nourished, Well developed, No Acute Distress Head: Normocephalic, Atraumatic Eyes: Perrl, EOMI ENT: Moist mucous membranes, No rhinorrhea Neck: Supple, Nontender, No lymphadenopathy, - - Full range of motion without pain. Cardiovascular: Regular rate, Regular rhythm, No murmurs Respiratory: No distress, CTA bilaterally, Chest nontender Abdomen: Soft, Nontender, Nondistended, Normal bowel sounds Back: Nontender, Normal Inspection Extremities: No edema, - - Tenderness to palpation over anterior right knee. No erythema, edema, ecchymosis. Mild pain with range of motion. Full passive range of motion. No ligamentous laxity. Skin: No rash, Trauma - Superficial abrasion to right forehead with mild underlying edema. No lacerations., - Neurological: Alert, Oriented x3, Cranial nerves II-XII grossly intact, Normal Strength, Normal Sensation Psychological: Normal affect, Normal Mood Diagnostic/Tx/Re-eval - Medical Decision Making Patient presents to the ED status post mechanical fall. She has an abrasion to her right forehead but no evidence of laceration. Her tetanus is up-to-date. CT brain shows no acute abnormalities. Right knee x-ray shows no acute injuries and solely degenerative changes. At this time, I think it is safe for the patient be discharged home. She was given light duty working restrictions. She is well follow-up at occupational health clinic. She was given concussion protocols. She was educated on signs/symptoms to return to the ED. She is provided discharge instructions and agreeable to plan Impression: Right forehead abrasion. Concussion without loss of consciousness. Right knee sprain. Disposition: Home stable ED Disposition - Plan for ED Patient: Disposition: Home or Assisted Living Instructions: CONCUSSION, No Wake Up, Abrasion, Knee Sprain Referrals: Bart Muniz MD [STAFF PHYSICIAN] -
--- NOTE | 2019-05-28 09:40 | ED.RN ---
PER NAGA AT , PT TO GO TO NOW CLINIC FOR DRUG TESTING IF SHE IS NOT ABLE TO COME IN PRIOR TO DISCHARGE. PT AWARE AND VOICES UNDERSTANDING.
--- NOTE | 2019-05-28 09:52 | RAD_ITS ---
STUDY: X-RAY - RIGHT KNEE REASON FOR EXAM: Female, 53 years old. Pain following a fall. TECHNIQUE: 4 view(s) of the knee. COMPARISON: None. FINDINGS: Popcorn calcification in distal femoral metaphysis suggestive of either a healed bone infarct or chondroid deposition. Normal visualized proximal tibia and fibula. Normal proximal tibiofibular articulation. There is severe degenerative arthrosis of the medial femorotibial compartment with severe joint space narrowing. Normal lateral femorotibial compartment. There is moderate degenerative arthrosis of the patellofemoral articulation. The soft tissue structures are unremarkable. RAD/Knee 4 or More Views IMPRESSION: Degenerative arthrosis. 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 Electronically Signed: Lamine Black, at 10:29 EDT , Service support ,
[2019-05-28] MEDS: Acetaminophen 500 MG Tablet 1000 MG PO (11:09)
[2019-05-28 12:00] VITALS: BP 155/91; PULSE 81; RESP 16; O2SAT 98
== END 2019-05-28 12:15 | disposition home or self-care (01) ==
PROVIDERS: Emergency Provider Physician Assistant; Family Provider Family Medicine; PCP Family Medicine
DX: S06.0X0A Concussion without loss of consciousness, initial encounter (principal); S00.81XA Abrasion of other part of head, initial encounter; S83.91XA Sprain of unspecified site of right knee, initial encounter; W01.0XXA Fall on same level from slipping, tripping and stumbling without subsequent striking against object, initial encounter; Z82.49 Family history of ischemic heart disease and other diseases of the circulatory system; Z90.49 Acquired absence of other specified parts of digestive tract; Y93.89 Activity, other specified; Y92.89 Other specified places as the place of occurrence of the external cause; Y99.0 Civilian activity done for income or pay
CPT/HCPCS: 70450; 73564; 99285

== ENCOUNTER 2019-10-22 12:01 | Emergency (ER) | payer BC, SELFPAY ==
[2019-10-22 12:02] VITALS: BP 157/89; PULSE 102; RESP 20; TEMP 37.6; O2SAT 97; BMI 53.3
[2019-10-22 12:09] VITALS: O2SAT 97
--- NOTE | 2019-10-22 12:25 | ED.VIS.GEN ---
History of Present Illness Chief Complaint: Cough Informant: Patient Onset: Today Current Severity: Mild Maximum Severity: Mild Narrative: Patient is here for concern of coughing up blood. She was seen at an urgent care, tested negative for influenza and was placed on symptomatic treatment from bronchitis, she noticed slight hemoptysis today. She has no hematemesis, no nausea or vomiting she has no recent weight loss, she has not smoked in 6 years. She has no night sweats or any recent fevers or chills. Past Medical History - Allergies and Home Meds Allergies/Adverse Reactions: Allergies carvedilol Allergy (Verified 10/22/19 12:02) Other Primary Care Physician: Jason Navarro MD [Primary Care Provider] - Past Medical History: - - Hypertension, hypercholesterolemia, diabetes Surgical History: cholecystectomy, - - Repair of fracture of the left ankle with plate insertion, tubal ligation Smoking Status: Former smoker - Family History Maternal Family History: Reports: Diabetes, Hypertension Paternal Family History: Reports: Diabetes, Heart Disease, Hypertension Review of Systems All systems negative except as indicated General: Denies: Fever Eyes: Denies: Visual changes - bilaterally ENT: Reports: - - He does have some upper airway congestion and a slightly productive cough Cardiovascular: Denies: Chest pain, Palpitations Respiratory: Reports: Cough, Sputum. Denies: Dyspnea, Dyspnea on exertion Gastrointestinal: Denies: Abdominal pain, Nausea, Vomiting Genitourinary: Denies: Dysuria Musculoskeletal: Reports: - - Current myalgias or though she did have an episode of myalgias a few weeks ago which now resolved Skin: Denies: Rash, Abscess Neurological: Denies: Headache, Weakness Psych: Denies: Depression Endocrine: Denies: Polyuria Physical Exam Vital Signs/Narrative: Vital Signs Temp Pulse Resp BP Pulse Ox 10/22/19 12:02 99.7 F H 102 H 20 H 157/89 H 97 Inital Vital Signs reviewed: Yes General: Well nourished, Well developed Head: Normocephalic Eyes: Perrl, EOMI ENT: Moist mucous membranes, - - , Upper airway congestion, some postnasal drip but no pharyngeal erythema Neck: Supple Cardiovascular: Regular rate, Regular rhythm, No murmurs Respiratory: No distress, CTA bilaterally. Negative for: Wheezing, Diminished, Decreased Air Movement Abdomen: Soft, Nontender Back: Nontender, Normal Inspection Extremities: Nontender Skin: Normal color Neurological: Normal Strength. Negative for: Weakness Diagnostic/Tx/Re-eval Chest X-Ray - ED: 2 View, Read by ED Physician, Normal, Heart, Lungs, Mediastinum, Bony Structures, No Acute Disease - Medical Decision Making Patient has bronchitis, she does not meet criteria for antibiotics. She is a diabetic therefore I will not give steroids. Otherwise I will treat with symptomatic treatment surety has an inhaler for home that was prescribed from the urgent care. Discharge stable condition ED Disposition - Plan for ED Patient: Disposition: Home or Assisted Living Instructions: BRONCHITIS, No Antibiotic (Adult) Prescriptions: Guaifenesin [Mucinex] 1,200 mg PO BID #10 tab.er.12h Prescription Printed Referrals: Jason Navarro MD [Primary Care Provider] - 3-5 Days
--- NOTE | 2019-10-22 12:32 | RAD_ITS ---
STUDY: X-RAY CHEST REASON FOR EXAM: Female, 53 years old. Cough, sob, and chest pain for approx. 1 week TECHNIQUE: PA and lateral views of the chest. COMPARISON: Comparison is made with prior examination July 29, 2018. FINDINGS: The lungs are clear and expanded. There is no demonstrated pleural abnormality. Normal size heart. Normal mediastinum and edwar. Normal visualized pulmonary arteries. Normal visualized aortic arch and descending thoracic aorta. Normal visualized thoracic spine. Normal visualized ribs, clavicles, and shoulders. There is no demonstrated abnormality of the visualized soft tissue structures of the upper abdomen. RAD/Chest PA and Lateral IMPRESSION: Normal x-ray examination of the chest. Electronically Signed: Lamine Black, at 12:44 EST , Service support ,
[2019-10-22 13:07] VITALS: BP 140/77; PULSE 110; RESP 19; O2SAT 98
== END 2019-10-22 13:08 | disposition home or self-care (01) ==
LOC: ED 12:54
PROVIDERS: Emergency Provider Emergency Medicine; PCP Family Medicine
DX: J40 Bronchitis, not specified as acute or chronic (principal); E11.9 Type 2 diabetes mellitus without complications; E78.00 Pure hypercholesterolemia, unspecified; I10 Essential (primary) hypertension; Z82.49 Family history of ischemic heart disease and other diseases of the circulatory system; Z87.891 Personal history of nicotine dependence; Z90.49 Acquired absence of other specified parts of digestive tract
CPT/HCPCS: 71046; 99282

== ENCOUNTER 2020-01-12 08:08 | Emergency (ER) | payer MEDICAID, SELFPAY ==
[2020-01-12 08:11] VITALS: BP 152/75; PULSE 137; RESP 19; TEMP 36.4; O2SAT 95; BMI 51.4
[2020-01-12 08:40] LABS: Mucous, Urine 0 SEEN /hpf (<or=2+)
[2020-01-12 08:45] LABS: Color, Urine Yellow (Yellow); Glucose, Dipstick 1000 mg/dl (Normal); Ketone-Dipstick 5 mg/dl (Negative); Leukocyte Esterase-Dipstick 500 /ul (Negative); Nitrite-Dipstick Positive (Negative); Occult Blood-Urine 250 /ul (Negative); Protein-Dipstick 500 mg/dl (Negative); Specific Gravity, Urine 1.025 (1.002-1.030); Urine Bilirubin Dipstick Negative (Negative); Urine Clarity Cloudy (Clear); Urine Urobilinogen Normal (Normal)
[2020-01-12 08:54] LABS: Bacteria 2+ /hpf (None Seen); Red Blood Cells-Urine > 100 SEEN /hpf (0-5); White Blood Cells >100 SEEN /hpf (0-5)
[2020-01-12 08:55] LABS: Squamous Epithelial Cells - UA 0-5 SEEN /hpf (5-10)
[2020-01-12] MEDS: Smz/Tmp Ds Tablet 1 TABLET PO (09:09)
[2020-01-12] MEDS: Phenazopyridine 95 MG Tablet 190 MG PO (09:09)
[2020-01-12] MEDS: Fluconazole 100 MG Tablet 200 MG PO (09:09)
--- NOTE | 2020-01-12 09:11 | ED.VISSUMM ---
- ER Visit Summary Date of Service: 01/12/20 Chief Complaint: [Vaginal discomfort] History of Present Illness: The patient is a 54 F [presents to the emergency department complaint of vaginal discomfort x3 days. Patient complains of a lot of burning with urination and withou. Patient denies any frequency or urgency or hematuria. She denies any fever. She denies any vomiting. She denies recent antibiotic usage. Patient only rarely has small amount of vaginal bleeding as she is going through menopause. Patient has history of type 2 diabetes as well as hypertension. Patient denies any back pain. No history of sexually transmitted diseases.] Physical Examination: [HEENT-PERRLA, EOMI. Cranial nerves II through XII grossly intact. TMs clear. Mucous membranes moist. No adenopathy. Cardiovascular-regular rate and rhythm without murmur or ectopy Lungs-clear to auscultation, chest wall stable without crepitus or subcu emphysema Abdomen-normoactive bowel sounds, soft, nontender, no rebound or rigidity, no peritoneal signs. exam-patient has evidence of candidal vaginitis with diffuse erythema and excoriation about the perineum. There is some thick cottage cheeselike discharge noted. No ulcerations noted. Patient cannot tolerate speculum exam. Extremities-intact ?4, normal range of motion, normal pulses, atraumatic Test Results: [Urinalysis was positive for 500 leukocyte esterase as well as nitrites and greater than 100 WBCs and greater than 100 RBCs and +2 bacteria. On NORMA prep patient had rare fungal elements noted.] Emergency Department Course and Treatment: [Patient was treated with Diflucan, Bactrim, and Azo. Urine culture was sent. Culture also sent for HSV.] Treatment Plan: [She will be treated with Diflucan, Bactrim, and Azo. Patient advised to follow-up with primary care physician in 3 to 5 days or her [employer].] Disposition: [Discharged home in stable condition] Impression: UTI Candidal vaginitis [] This note was generated with [employer] dictation software. It may contain incorrect words, spelling, and punctuation that were not noted in review of the chart prior to signing ED Disposition - Plan for ED Patient: Referrals: Jason Navarro MD [Primary Care Provider] -
--- NOTE | 2020-01-12 09:14 | ED.DEP ---
ED Disposition - Plan for ED Patient: Instructions: Vaginal Infection: Yeast (Candidiasis), ED CYSTITIS Female Adult Prescriptions: Smz/Tmp Ds [Bactrim Ds] 1 tab PO BID #14 tab Prescription Printed Fluconazole [Diflucan] 100 mg PO DAILY #3 tab Prescription Printed Phenazopyridine HCl [Pyridium] 200 mg PO BID PRN PRN #10 tab PRN Reason: Pain Prescription Printed Referrals: Jason Navarro MD [Primary Care Provider] - 3-5 Days Additional Instructions: you may follow up with your [employer]ATOR if symptoms continue
== END 2020-01-12 09:22 | disposition home or self-care (01) ==
LOC: ED 08:55
PROVIDERS: Emergency Provider Emergency Medicine; PCP Family Medicine
DX: N39.0 Urinary tract infection, site not specified (principal); B37.3 Candidiasis of vulva and vagina; E11.9 Type 2 diabetes mellitus without complications; I10 Essential (primary) hypertension
CPT/HCPCS: 81001; 87077; 87086; 87088; 87186; 87210; 87255; 99283